=== PATIENT | male | born 1965 | race Caucasian/White ===

== ENCOUNTER 2017-03-09 10:36 | Emergency (ER) | payer SELFPAY ==
[2017-03-09 10:37] VITALS: BP 132/88; PULSE 133; RESP 18; TEMP 98.3; O2SAT 96
[2017-03-09] MEDS ORDERED: chlordiazePOXIDE 25 MG CAP PO ONE (11:30)
--- NOTE | 2017-03-09 13:00 | PD ---
HPI Chief Complaint: Medical Clearance Time Seen by Provider: 11:18 Travel History International Travel<30 days: No Contact w/Intl Traveler<30days: No Traveled to known affect area: No History of Present Illness HPI This is a 51-year-old male who has a history of alcoholism who presents to the emergency department requesting a prescription for Librium. The patient says up to 2 weeks ago he was taking Librium for anxiety. When he ran out of his Librium he started to drink again, relapsing after several years of sobriety. He also says he recently lost his job. He says he's been drinking alcohol all night, constant, moderate severity, but denies any other acute injuries or complaints. [facility] Past Medical History Narrative Medical Says he had failure of one kidney Social History Alcohol Use: Yes Tobacco Use: Yes Allergies-Medications (Allergen,Severity, Reaction): Coded Allergies: tetracycline (Verified Allergy, Unknown, 03/09/17) Review of Systems Except as stated in HPI: all other systems reviewed are Neg Physical Exam Narrative GENERAL:Well appearing, no acute distress SKIN: Scattered old abrasions on the face and arms HEAD: Atraumatic. Normocephalic. EYES: Pupils equal and round. No injection or drainage. ENT: Moist mucous membranes NECK: Trachea midline. CARDIOVASCULAR: Regular rate and rhythm. No murmur appreciated. RESPIRATORY: Clear to auscultation. Breath sounds equal bilaterally. GASTROINTESTINAL: Abdomen soft, non-tender, nondistended. MUSCULOSKELETAL: No obvious deformities. NEUROLOGICAL: Awake and alert. No obvious cranial nerve deficits. Moving all extremities. PSYCHIATRIC: Appropriate mood and affect; insight and judgment normal. No suicidal or homicidal ideation. Data Data Last Documented VS Vital Signs Date Time Temp Pulse Resp B/P (MAP) Pulse Ox O2 Delivery O2 Flow Rate FiO2 03/09/17 10:37 98.3 133 18 132/88 (103) 96 Orders Orders Chlordiazepoxide (Librium) (03/09/17 11:30) [facility] Medical Decision Making Medical Screen Exam Complete: Yes Emergency Medical Condition: Yes Interpretation(s) Afebrile, tachycardic, normotensive Differential Diagnosis Alcohol intoxication, alcohol withdrawal Narrative Course This is a 51-year-old male who presents to the emergency department in early alcohol withdrawal. He is requesting Librium in detox. He was given 50 mg of Librium. He was given resources regarding [facility]. I think he requires any additional diagnostics. Patient will be discharged home. Diagnosis Primary Impression: Alcoholism Patient Instructions: General Instructions Additional Instructions: Follow up with [facility] in regards to psychiatric or substance related issues at: [address] [place], [place] [id number] Med/Other Pt SpecificInfo: No Change to Meds Disposition: 01 DISCHARGE HOME Condition: Stable Modesta Shrestha MD Mar 09, 2017 13:00
[2017-03-09 13:05] VITALS: BP 124/78; PULSE 130; RESP 16; O2SAT 97
[2017-03-09] MEDS ORDERED: LORazepam 2 MG/ML VIAL IM ONE (13:30)
--- NOTE | 2017-03-10 14:27 | EKG ---
Date Performed: 03/09/2017 Time Performed: 13:31:57 PTAGE: 51 years EKG: SINUS TACHYCARDIA WITH SHORT AL INTERVAL NONSPECIFIC T-WAVE ABNORMALITY ABNORMAL RHYTHM ECG NO PREVIOUS TRACING DOCTOR: Nola Jeffers Interpretating Date/Time 03/10/2017 14:24:19
== END 2017-03-09 15:15 | disposition home or self-care (01) ==
LOC: NEPD 10:36
DX: F10.20 Alcohol dependence, uncomplicated (principal); R94.31 Abnormal electrocardiogram [ECG] [EKG]; R00.0 Tachycardia, unspecified; F41.9 Anxiety disorder, unspecified; Z72.0 Tobacco use; Z88.8 Allergy status to other drugs, medicaments and biological substances
CPT/HCPCS: 93005; 96372; 99285; J2060